=== PATIENT | male | born 1985 | race Hispanic/Latino ===

== ENCOUNTER 2020-08-21 16:07 | Outpatient (CLI) | payer BC | END 2020-08-21 16:08 | disposition home or self-care (01) | LOC: BICCT 16:07 | PROVIDERS: ATTEND Neurological Surgery | DX: M51.16 Intervertebral disc disorders with radiculopathy, lumbar region (principal); M48.061 Spinal stenosis, lumbar region without neurogenic claudication; S32.05 Fracture of fifth lumbar vertebra | CPT/HCPCS: 72131 ==

== ENCOUNTER 2020-08-27 07:40 | Day surgery (SDC) | payer BC ==
[2020-08-26 10:25] VITALS: BMI 33.7
[2020-08-27] MEDS ORDERED: EPINEPHrine 1 MG/ML AMP ONE (10:08)
[2020-08-27] MEDS ORDERED: Bupivacaine PF 0.5% 30 ML VIAL ONE (10:08)
[2020-08-27] MEDS ORDERED: Midazolam HCl 2 mg/2 ml Vial ONE (10:12)
[2020-08-27] MEDS ORDERED: Famotidine/PF 20 mg/2ml Vial ONE (10:12)
[2020-08-27] MEDS ORDERED: Fentanyl 100 MCG/2 ML VIAL ONE (10:19)
[2020-08-27] MEDS ORDERED: Rocuronium Bromide 10 MG/ML (10ML VIAL) ONE (10:21)
[2020-08-27] MEDS ORDERED: Glycopyrrolate 0.2 MG/ML 5 ML SYRINGE ONE (10:21)
[2020-08-27] MEDS ORDERED: Dexamethasone 20 MG/5 ML VIAL ONE (10:21)
[2020-08-27] MEDS ORDERED: Ondansetron PF 4 MG/2 ML Vial ONE (10:21)
[2020-08-27] MEDS ORDERED: PROPOFOL 200 MG/20 ML VIAL ONE (10:21)
[2020-08-27] MEDS ORDERED: Lidocaine 1% PF 5 ML VIAL ONE (10:21)
[2020-08-27] MEDS ORDERED: Ketorolac Tromethamine 30 MG/ML VIAL ONE (10:21)
[2020-08-27] MEDS ORDERED: HYDROmorphone 2 MG/ML VIAL ONE (13:02)
[2020-08-27] MEDS ORDERED: Tamsulosin HCl 0.4 MG CAP ONE (14:00)
[2020-08-27] MEDS ORDERED: HYDROcodone/Acetaminophen 5/325 mg Tablet ONE (14:57)
== END 2020-08-27 15:47 | disposition home or self-care (01) ==
LOC: SDC 07:40
PROVIDERS: ATTEND Neurological Surgery
PROC: 0SG3071 Fusion of Lumbosacral Joint with Autologous Tissue Substitute, Posterior Approach, Posterior Column, Open Approach (ICD-10-PCS; principal; 2020-08-27)
DX: M51.16 Intervertebral disc disorders with radiculopathy, lumbar region (principal); M48.8X7 Other specified spondylopathies, lumbosacral region
CPT/HCPCS: 76000; C1713; C1768; J0171; J0690; J1100; J1170; J1885; J2250; J2405; J2704; J3010; S0020; S0028